=== PATIENT | male | born 1950 | race Caucasian/White ===

== ENCOUNTER 2017-12-24 12:42 | Emergency (ER) | payer OTHER, BC ==
[2017-12-24] MEDS ORDERED: NA CHLORIDE 0.9% 1,000 ML ONE (13:56)
[2017-12-24] MEDS ORDERED: ALBUTEROL 2.5 MG/3 ML NEB SOL ONE ×2 (13:56→17:26)
--- NOTE | 2017-12-24 14:14 | RAD REPORT ---
EXAM DESCRIPTION: Stacey Single View12/24/2017 1:46 pm CLINICAL HISTORY: cough COMPARISON: December 12, 2017 FINDINGS: Moderate improvement in the right upper lobe opacities has occurred. No significant change additional bilateral pulmonary opacities. Sensory is catheters tip in the superior vena cava. The heart is normal size IMPRESSION: Moderate improvement in a right upper lobe pneumonia. No significant change in additional bilateral pulmonary opacities.
[2017-12-24 14:28] LABS: Absolute Lymphocytes (CBC) 0.4 K/uL (0.7-4.9); Absolute Monocytes 0.9 K/uL (0.1-1.3); Basophils % 0.3 % (0-1.3); Eosinophils % 0.1 % (0-4.4); Lymphocytes % 2.9 % (15.3-44.8); MCH 27.5 pg (27.0-35.0); MCV 87.8 fL (80-100); MPV 7.5 fL (7.6-11.3); Monocytes % 6.7 % (3.3-12.3); RBC Red Blood Cell Count 3.42 M/uL (4.33-5.43)
[2017-12-24 14:29] LABS: Bicarbonate 28 mEq/L (21-31); Glucose Level 122 mg/dL (65-120); Potassium 3.6 mEq/L (3.6-5.0); Sodium Level 132 mEq/L (135-145)
[2017-12-24 14:30] LABS: BUN Blood Urea Nitrogen 14 mg/dL (6-20); Glomerular Filtration Rate > 90 mL/min (=/>90)
[2017-12-24 14:32] LABS: Protime INR 1.16
[2017-12-24] MEDS ORDERED: PIPERACILLIN-TAZO-DEXTROSE,ISO 3.375 GM/50 ML BAG ONE (15:15)
[2017-12-24 17:16] LABS: Platelet Estimate ADEQ; Urine White Blood Cell Casts OK
--- NOTE | 2017-12-24 17:16 | ER ---
Nurse's Notes [facility] Name: Nadeem Patterson Age: 67 yrs Sex: Male : 1950 Arrival Date: 12/24/2017 Time: 12:48 Bed 13 Private MD: Diagnosis: Pneumonia, unspecified organism Presentation: 12/24 12:48 Presenting complaint: EMS states: Pt was having a hard time expectorating. Since he has jl7 been on the stretcher and laid back some he has had no complaints. Transition of care: patient was received from another setting of care (long-term care facility), [facility]. Onset of symptoms was December 24, 2017. Care prior to arrival: None. 12:48 Method Of Arrival: EMS: [facility] jl7 12:48 Acuity: AMENA 3 jl Historical: - Allergies: 13:02 No Known Allergies; jl7 - Home Meds: 13:02 acetylcysteine oral oral [Active]; Colace oral oral [Active]; bisacodyl Oral [Active]; jl7 guaifenesin Oral [Active]; prednisone 20 mg Oral tab once daily [Active]; fentanyl 25 mcg/hr Topical pt72 1 patch every 72 hours [Active]; Acidophilus Oral chew three times a day [Active]; cyanocobalamin (vitamin B-12) oral oral [Active]; folic acid 1 mg Oral tab 1 tab once daily [Active]; omeprazole 40 mg Oral cpDR 1 cap once daily [Active]; gabapentin 300 mg Oral cap 1 cap twice a day [Active]; hydrocodone-acetaminophen 10-325 mg Oral tab 1 tab every 6 hours [Active]; Senexon-S 8.6-50 mg Oral tab as needed [Active]; simethicone 180 mg Oral cap BID PRN [Active]; ondansetron HCl 4 mg Oral tab 1 tabs as needed [Active]; ipratropium-albuterol inhalation Inhl [Active]; Albuterol Nebulizer [Active]; - PMHx: 13:02 Lung cancer; GERD; brain cancer- removed, lung cancer, under treatment; Pneumonia; jl7 - Immunization history:: Adult Immunizations up to date. - Social history:: Smoking status: Patient/guardian denies using tobacco. Screenin:55 Abuse screen: Denies threats or abuse. Denies injuries from another. Nutritional jtb screening: No deficits noted. Tuberculosis screening: No symptoms or risk factors identified. Fall Risk None identified. Assessment: 12:55 General: Appears in no apparent distress. uncomfortable, Behavior is calm, cooperative, jtb appropriate for age. Pain: Complains of pain in left upper quadrant and left lower quadrant Pain does not radiate. Pain currently is 6 out of 10 on a pain scale. at worst was 8 out of 10 on a pain scale. Quality of pain is described as Pain began years ago. Neuro: Level of Consciousness is awake, alert, obeys commands, Oriented to person, place, time, situation. Cardiovascular: Denies chest pain, Heart tones S1 S2 present Patient's skin is warm and dry. Respiratory: Reports shortness of breath cough that is non-productive, Airway is patent Respiratory effort is even, unlabored, Respiratory pattern is regular, symmetrical, Breath sounds are clear bilaterally. GI: Abdomen is flat, Bowel sounds present X 4 quads. Abd is soft and non tender in right upper quadrant and right lower quadrant Abdomen is tender to palpation in left upper quadrant and left lower quadrant. : No signs and/or symptoms were reported regarding the genitourinary system. EENT: No signs and/or symptoms were reported regarding the EENT system. Derm: Skin is pink, warm \T\ dry. Decubitus located on sacrum approximately 2.6 cm to 7.5 cm is stage II is draining none noted. Musculoskeletal: Reports weakness in right arm, left arm, right leg and left leg. 13:41 Reassessment: Patient and/or family updated on plan of care and expected duration. Pain jtb level reassessed. Patient is alert, oriented x 3, equal unlabored respirations, skin warm/dry/pink. X-Ray is at the bedside. 14:40 Reassessment: Patient and/or family updated on plan of care and expected duration. Pain jtb level reassessed. Patient is alert, oriented x 3, equal unlabored respirations, skin warm/dry/pink. 15:40 Reassessment: Patient and/or family updated on plan of care and expected duration. Pain jtb level reassessed. Patient is alert, oriented x 3, equal unlabored respirations, skin warm/dry/pink. 16:40 Reassessment: Patient and/or family updated on plan of care and expected duration. Pain jtb level reassessed. Patient is alert, oriented x 3, equal unlabored respirations, skin warm/dry/pink. Pt is resting in bed , Lungs CTA DEEPAK Patient denies pain at this time. 17:27 Reassessment: Patient and/or family updated on plan of care and expected duration. Pain jtb level reassessed. Patient is alert, oriented x 3, equal unlabored respirations, skin warm/dry/pink. Provider at the bedside updating pt on plan of care. 18:15 Reassessment: [facility] notified of pt's dispo status. [facility] will provide [facility] transportation. Vital Signs: 13:04 BP 104 / 69; Pulse 90; Resp 22 S; Pulse Ox 95% on 2 lpm NC; Pain 6/10; jtb 13:33 Temp 98.4(O); Weight 58.06 kg (R); Height 6 ft. 1 in. (185.42 cm) (R); jtb 14:15 BP 108 / 70; Pulse 89; Resp 16 S; Pulse Ox 95% on 2 lpm NC; jl7 15:30 BP 99 / 63; Pulse 94; Resp 18; Pulse Ox 97% on 2 lpm NC; mh5 16:44 BP 106 / 59; Pulse 96; Resp 19; Pulse Ox 94% on 2 lpm NC; mh5 17:10 BP 100 / 65; Pulse 94; Resp 20; Pulse Ox 96% on R/A; jtb 18:00 BP 110 / 64; Pulse 100; Resp 17 S; Pulse Ox 95% on R/A; jtb 18:30 BP 96 / 61; Pulse 102; Resp 18 S; Pulse Ox 95% on R/A; jtb 20:00 BP 99 / 64; Pulse 95; Resp 19; Pulse Ox 95% on R/A; Pain 0/10; fu 21:32 BP 109 / 66; Pulse 93; Resp 20; Pulse Ox 97% on NC; Pain 0/10; fu 13:33 Body Mass Index 16.89 (58.06 kg, 185.42 cm) jtb ED Course: 12:48 Patient arrived in ED. jl7 12:49 Mariposa Reed FNP-C is [facility] snw 12:49 Reji Greenberg MD is Attending Physician. snw 12:50 Triage completed. jl7 12:55 Riley Cowan, RN is Primary Nurse. jl7 12:55 Patient has correct armband on for positive identification. Bed in low position. Call jtb light in reach. Side rails up X2. Pulse ox on. NIBP on. 13:34 Arm band placed on right wrist. jtb 15:00 Initial lab(s) drawn, by me, sent to lab. Inserted saline lock: 20 gauge in right jl7 antecubital area, using aseptic technique. Blood collected. 18:50 No provider procedures requiring assistance completed. IV discontinued, intact, jl7 bleeding controlled, No redness/swelling at site. Pressure dressing applied. Administered Medications: 13:40 Drug: Albuterol 2.5 mg Route: Inhalation; jl7 14:00 Drug: Albuterol 2.5 mg Route: Inhalation; jl7 14:05 Drug: NS 0.9% 1000 ml Route: IV; Rate: 75 ml/hr; Site: right antecubital; jl7 18:34 Follow up: IV Status: Order to discontinue infusion jl7 14:30 Drug: Albuterol 2.5 mg Route: Inhalation; jl7 15:00 Follow up: Response: No adverse reaction jl7 16:00 Drug: NS 0.9% 500 ml Route: IV; Rate: bolus; Site: right antecubital; jl7 17:00 Follow up: Response: No adverse reaction; IV Status: Completed infusion jl7 16:20 Drug: Zosyn 3.375 grams Route: IVPB; Infused Over: 60 mins; Site: right antecubital; jl7 16:20 Follow up: Response: No adverse reaction; IV Status: Completed infusion jl7 17:20 Drug: Flagyl 500 mg Route: PO; jl7 18:33 Follow up: Response: No adverse reaction jl7 17:20 Drug: Albuterol 2.5 mg Route: Inhalation; jl7 18:32 Follow up: Response: No adverse reaction [facility] Outcome: 17:15 Discharge ordered by MD. lopes 19:04 Attestation : I agree with everything documented by Rubén Grace, Student Nurse. [facility] 19:04 Discharged to home ambulatory. 19:04 Condition: stable 19:04 Discharge instructions given to patient, senior living, Instructed on discharge instructions, follow up and referral plans. medication usage, Demonstrated understanding of instructions, follow-up care, medications, Prescriptions given X 2. 21:34 Discharged to senior living. [facility] 21:34 Condition: stable 21:36 Patient left the ED. fu Signatures: Mariposa Reed, SHADE SUPERVISOR [employer]-Odellw Celsa Turner [facility] Riley Cowan, RN RN jl7 Jerome Quesada, CHASE RN Rubén Serra j Corrections: (The following items were deleted from the chart) 13:42 12:55 Musculoskeletal: No signs and/or symptoms reported regarding the musculoskeletal jtb system. jtb 17:27 12:55 Derm: Skin is intact, Skin is pink, warm \T\ dry. jtb jtb 17:30 12:55 Derm: Skin is pink, warm \T\ dry. Decubitus located on sacrum approximately 2.6 cm jtb to 7.5 cm is stage II jtb 21:32 21:00 BP 99 / 64; Pulse 95bpm; Resp 19bpm; Pulse Ox 95% RA; Pain 0/10; fu fu
--- NOTE | 2017-12-24 17:16 | EDPHYS ---
Physician Documentation [facility] Name: Nadeem Patterson Age: 67 yrs Sex: Male : 1950 Arrival Date: 12/24/2017 Time: 12:48 Bed 13 Private MD: ED Physician Reji Greenberg HPI: 12/24 14:09 This 67 yrs old Male presents to ER via EMS with complaints of coughing fits, snw shortness of breath. 14:09 The patient has shortness of breath with cough. Onset: The symptoms/episode snw began/occurred since last admission. Pt states they told him in the NH that he has double pneumonia. Duration: The symptoms are continuous. The patient's shortness of breath has no apparent modifying factors. Associated signs and symptoms: Pertinent positives: This patient does not have any pertinent positive signs or symptoms associated with shortness of breath. Severity of symptoms: At their worst the symptoms were moderate in the emergency department the symptoms have resolved. The patient has experienced similar episodes in the past. It is unknown whether or not the patient has recently seen a physician. pt seeking experimental tx in [facility] [place] for stage 4 Lung Ca. Historical: - Allergies: 13:02 No Known Allergies; jl7 - Home Meds: 13:02 acetylcysteine oral oral [Active]; Colace oral oral [Active]; bisacodyl Oral [Active]; jl7 guaifenesin Oral [Active]; prednisone 20 mg Oral tab once daily [Active]; fentanyl 25 mcg/hr Topical pt72 1 patch every 72 hours [Active]; Acidophilus Oral chew three times a day [Active]; cyanocobalamin (vitamin B-12) oral oral [Active]; folic acid 1 mg Oral tab 1 tab once daily [Active]; omeprazole 40 mg Oral cpDR 1 cap once daily [Active]; gabapentin 300 mg Oral cap 1 cap twice a day [Active]; hydrocodone-acetaminophen 10-325 mg Oral tab 1 tab every 6 hours [Active]; Senexon-S 8.6-50 mg Oral tab as needed [Active]; simethicone 180 mg Oral cap BID PRN [Active]; ondansetron HCl 4 mg Oral tab 1 tabs as needed [Active]; ipratropium-albuterol inhalation Inhl [Active]; Albuterol Nebulizer [Active]; - PMHx: 13:02 Lung cancer; GERD; brain cancer- removed, lung cancer, under treatment; Pneumonia; jl7 - Immunization history:: Adult Immunizations up to date. - Social history:: Smoking status: Patient/guardian denies using tobacco. ROS: 14:08 Constitutional: Negative for fever, chills, and weight loss, Eyes: Negative for injury, snw pain, redness, and discharge, ENT: Negative for injury, pain, and discharge, Neck: Negative for injury, pain, and swelling, Cardiovascular: Negative for chest pain, palpitations, and edema, Abdomen/GI: Negative for abdominal pain, nausea, vomiting, diarrhea, and constipation, Back: Negative for injury and pain, : Negative for injury, bleeding, discharge, and swelling, MS/Extremity: Negative for injury and deformity, Skin: Negative for injury, rash, and discoloration, Neuro: Negative for headache, weakness, numbness, tingling, and seizure. 14:08 Respiratory: Positive for cough, shortness of breath. Exam: 14:03 Head/Face: Normocephalic, atraumatic. ENT: Nares patent. No nasal discharge, no snw septal abnormalities noted. Tympanic membranes are normal and external auditory canals are clear. Oropharynx with no redness, swelling, or masses, exudates, or evidence of obstruction, uvula midline. Mucous membranes moist. 14:03 Constitutional: The patient appears alert, awake, frail, uncomfortable. 14:08 Eyes: Pupils equal round and reactive to light, extra-ocular motions intact. Lids and snw lashes normal. Conjunctiva and sclera are non-icteric and not injected. Cornea within normal limits. Periorbital areas with no swelling, redness, or edema. Neck: Trachea midline, no thyromegaly or masses palpated, and no cervical lymphadenopathy. Supple, full range of motion without nuchal rigidity, or vertebral point tenderness. No Meningismus. Chest/axilla: Normal chest wall appearance and motion. Nontender with no deformity. No lesions are appreciated. 14:08 Abdomen/GI: Soft, non-tender, with normal bowel sounds. No distension or tympany. No guarding or rebound. No evidence of tenderness throughout. Back: No spinal tenderness. No costovertebral tenderness. Full range of motion. Skin: Warm, dry with normal turgor. Normal color with no rashes, no lesions, and no evidence of cellulitis. MS/ Extremity: Pulses equal, no cyanosis. Neurovascular intact. Full, normal range of motion. Neuro: Awake and alert, GCS 15, oriented to person, place, time, and situation. Cranial nerves II-XII grossly intact. Motor strength 5/5 in all extremities. Sensory grossly intact. Cerebellar exam normal. Normal gait. 14:08 Cardiovascular: Rate: tachycardic, Rhythm: regular, Heart sounds: normal. 14:08 Respiratory: the patient does not display signs of respiratory distress, Respirations: shallow respirations, Breath sounds: are clear throughout. Vital Signs: 13:04 BP 104 / 69; Pulse 90; Resp 22 S; Pulse Ox 95% on 2 lpm NC; Pain 6/10; jtb 13:33 Temp 98.4(O); Weight 58.06 kg (R); Height 6 ft. 1 in. (185.42 cm) (R); jtb 14:15 BP 108 / 70; Pulse 89; Resp 16 S; Pulse Ox 95% on 2 lpm NC; jl7 15:30 BP 99 / 63; Pulse 94; Resp 18; Pulse Ox 97% on 2 lpm NC; mh5 16:44 BP 106 / 59; Pulse 96; Resp 19; Pulse Ox 94% on 2 lpm NC; mh5 17:10 BP 100 / 65; Pulse 94; Resp 20; Pulse Ox 96% on R/A; jtb 18:00 BP 110 / 64; Pulse 100; Resp 17 S; Pulse Ox 95% on R/A; jtb 18:30 BP 96 / 61; Pulse 102; Resp 18 S; Pulse Ox 95% on R/A; jtb 20:00 BP 99 / 64; Pulse 95; Resp 19; Pulse Ox 95% on R/A; Pain 0/10; fu 21:32 BP 109 / 66; Pulse 93; Resp 20; Pulse Ox 97% on NC; Pain 0/10; fu 13:33 Body Mass Index 16.89 (58.06 kg, 185.42 cm) jtb MDM: 12:54 Patient medically screened. snw 17:17 Data reviewed: vital signs, nurses notes. Data interpreted: Pulse oximetry: on room air snw is 96 %. Interpretation: acceptable. Counseling: I had a detailed discussion with the patient and/or guardian regarding: the historical points, exam findings, and any diagnostic results supporting the discharge/admit diagnosis, lab results, the need for outpatient follow up, for definitive care, to return to the emergency department if symptoms worsen or persist or if there are any questions or concerns that arise at home. Special discussion: Based on the history and exam findings, there is no indication for further emergent testing or inpatient evaluation. I discussed with the patient/guardian the need to see the primary care provider for further evaluation of the symptoms. 12/24 13:10 Order name: T\T\S [facility] 12/24 13:10 Order name: Basic Metabolic Panel [facility] 12/24 13:10 Order name: Blood Culture Adult (2) [facility] 12/24 13:10 Order name: CBC with Diff [facility] 12/24 13:10 Order name: Lactate [facility] 12/24 13:10 Order name: Procalcitonin [facility] 12/24 13:10 Order name: Protime (+inr) [facility] 12/24 13:10 Order name: Ptt, Activated [facility] 12/24 13:10 Order name: Troponin (emerg Dept Use Only) [facility] 12/24 14:29 Order name: Basic Metabolic Panel; Complete Time: 14:32 EDMS 12/24 14:32 Order name: Lactate; Complete Time: 14:33 EDMS 12/24 14:36 Order name: Protime (+INR); Complete Time: 14:36 EDMS 12/24 14:36 Order name: PTT, Activated Partial Thromb; Complete Time: 14:36 EDMS 12/24 14:37 Order name: Troponin (Emerg Dept Use Only); Complete Time: 14:46 EDMS 12/24 13:10 Order name: Chest Single View XRAY [facility] 12/24 13:10 Order name: Cardiac monitoring; Complete Time: 14:15 w 12/24 13:10 Order name: EKG - Nurse/Tech; Complete Time: 14:15 critical access hospital 12/24 13:10 Order name: IV Saline Lock - Large Bore; Complete Time: 14:15 w 12/24 14:14 Order name: RAD; Complete Time: 14:29 EDMS 12/24 14:38 Order name: CBC with Automated Diff; Complete Time: 17:26 EDMS 12/24 14:52 Order name: Procalcitonin; Complete Time: 14:52 EDMS 12/24 16:14 Order name: Type and Screen; Complete Time: 16:17 EDMS 12/24 17:17 Order name: CBC Smear Scan; Complete Time: 17:26 EDMS 12/24 19:30 Order name: ABO/RH no charge; Complete Time: 19:33 EDMS 12/24 13:10 Order name: Labs collected and sent; Complete Time: 14:15 snw 12/24 13:10 Order name: O2 Per Protocol; Complete Time: 14:15 snw 12/24 13:10 Order name: O2 Sat Monitoring; Complete Time: 14:15 snw Administered Medications: 13:40 Drug: Albuterol 2.5 mg Route: Inhalation; jl7 14:00 Drug: Albuterol 2.5 mg Route: Inhalation; jl7 14:05 Drug: NS 0.9% 1000 ml Route: IV; Rate: 75 ml/hr; Site: right antecubital; jl7 18:34 Follow up: IV Status: Order to discontinue infusion jl7 14:30 Drug: Albuterol 2.5 mg Route: Inhalation; jl7 15:00 Follow up: Response: No adverse reaction jl7 16:00 Drug: NS 0.9% 500 ml Route: IV; Rate: bolus; Site: right antecubital; jl7 17:00 Follow up: Response: No adverse reaction; IV Status: Completed infusion jl7 16:20 Drug: Zosyn 3.375 grams Route: IVPB; Infused Over: 60 mins; Site: right antecubital; jl7 16:20 Follow up: Response: No adverse reaction; IV Status: Completed infusion jl7 17:20 Drug: Flagyl 500 mg Route: PO; jl7 18:33 Follow up: Response: No adverse reaction jl7 17:20 Drug: Albuterol 2.5 mg Route: Inhalation; jl7 18:32 Follow up: Response: No adverse reaction jl7 Disposition: 18:00 Co-signature as Attending Physician, Reji Greenberg MD. ma2 Disposition: 12/24/17 17:15 Discharged to Home. Impression: Pneumonia, unspecified organism. - Condition is Stable. - Discharge Instructions: Pneumonia, Adult, Cough, Adult. - Prescriptions for Flagyl 500 mg Oral Tablet - take 1 tablet by ORAL route every 8 hours for 10 days; 30 tablet. Levaquin 500 mg Oral Tablet - take 1 tablet by ORAL route once daily for 7 days; 7 tablet. - Medication Reconciliation Form, Thank You Letter, Antibiotic Education, Prescription Opioid Use form. - Follow up: Private Physician; When: 24 Hours; Reason: Recheck today's complaints, Continuance of care, Re-evaluation by your physician. Follow up: Emergency Department; When: As needed; Reason: Worsening of condition. - Notes: Please begin antibiotics tomorrow. Patient has had doses for today. Pneumonia improved over previous chest films. Signatures: Dispatcher [employer] EDMS Mariposa Reed, INCOME TAX ADMINISTRATOR-C INCOME TAX ADMINISTRATOR-[employer] Riley Cowan RN RN jl7 Jerome Quesada RN Reji Luna MD MD ma2
[2017-12-24 17:17] LABS: Anisocytosis 3+; Blood Morphology Comment NOTED (NOT SEEN); Poikilocytosis 1+
[2017-12-24] MEDS ORDERED: metroNIDAZOLE 500 MG TABLET ONE (17:26)
--- NOTE | 2017-12-25 06:36 | EKG ---
Test Date: 2017-12-24 Test Time: 13:54:11 Fire Code Inspector: RENZO MEASUREMENT RESULTS: Intervals: Rate: 94 AL: 146 QRSD: 86 QT: 366 QTc: 457 [place]: P: 81 AL: 146 QRS: 42 T: 66 INTERPRETIVE STATEMENTS: Normal sinus rhythm Normal ECG Compared to ECG 12/11/2017 23:55:31 Sinus tachycardia no longer present Electronically Signed On 12-25-17 06:34:50 CDT by Narendra Andrews
== END 2017-12-24 21:36 | disposition home or self-care (01) ==
LOC: ER 12:42
DX: J18.9 Pneumonia, unspecified organism (principal); Z85.118 Personal history of other malignant neoplasm of bronchus and lung; Z85.841 Personal history of malignant neoplasm of brain
CPT/HCPCS: 36415; 71045; 80048; 83605; 84145; 84484; 85025; 85610; 85730; 86850; 86900; 86901; 87040 ×2; 87205; 93005; 96361; 96374; 99284; J2543; J7030